=== PATIENT | male | born 1980 ===

== ENCOUNTER → 2018-11-20 | Emergency (ER) | payer OTHER ==
[~2018-11-20] VITALS: Ht 162.6 cm; Wt 92.1 kg
[~2018-11-20] MED LIST: CLONIDINE HCL0.1 MG PO; VASOTEC20 M1 PO
== END | disposition left against medical advice (07) ==
LOC: ER 09:30
DX: Z53.20 Procedure and treatment not carried out because of patient's decision for unspecified reasons (principal)